=== PATIENT | female | born 1990 | race Caucasian/White ===

== ENCOUNTER 2017-03-21 16:25 | Emergency (ER) | payer OTHER ==
[~2017-03-21] VITALS: Ht 170.2 cm; Wt 73.2 kg
[2017-03-21 16:28] VITALS: BP 110/69; PULSE 82; TEMP 36.7; O2SAT 100; Ht 170.2 cm; Wt 73.2 kg
[2017-03-21] MEDS ORDERED: AMOX500C3 PO (16:46)
--- NOTE | 2017-03-21 20:47 | EMERGENCY ROOM VISIT NOTE ---
History First contact with patient: 16:31 Chief Complaint: EAR PAIN Stated Complaint: EAR ACHE History of Present Illness The patient is a 26 year old female who presents to the Emergency Room with complaints of a left-sided earache. The patient reports that she has a history of impacted wisdom teeth. She believes that her pain is being caused by this. However, she is also concerned that she may have a dental infection. The patient denies any fevers or chills. She reports that the pain radiates into her left anabaptism. She denies any headache, runny nose, sinus congestion or sore throat. The patient recently moved to the area, and does not have a family doctor. She rates her discomfort a 4 out of 10. Review of Systems 10 system review was performed and was negative except for pertinent positives and negatives as indicated in history of present illness Past Medical/Surgical History Medical Problems: (1) Heart disease Surgical Problems: (1) History of delivery Family History FH: heart disease Social History Smoking Status: Former Smoker Alcohol Use: none Marital Status: Housing Status: lives with family Occupation Status: employed Current/Historical Medications Scheduled Amoxicillin (Amoxil), 1 CAP PO TID Allergies Coded Allergies: No Known Allergies (Unverified , 03/21/17) Physical Exam Vital Signs Date Time Temp Pulse Resp B/P Pulse Ox O2 Delivery O2 Flow Rate FiO2 03/21/17 16:28 36.7 82 20 110/69 100 Room Air Pain Rating (0-10): 0 Physical Exam CONSTITUTIONAL: Healthy and well nourished. Alert and oriented X 3 with positive affect. Patient does not appear in any acute distress. HEENT: Normocephalic, atraumatic. Pupils equal, round and reactive. No facial edema or erythema noted. No tenderness to palpation of the left parotid gland. Nares are clear. Examination of the left ear does not show any erythema , air-fluid levels or effusions. OROPHARYNX: No obvious dental pain with percussion or palpation. No gingival erythema, fluctuance or pointing. NECK: Full active range of motion without discomfort. RESPIRATORY: Clear to auscultation bilaterally with no wheezing, crackles, rhonchi or stridor. CARDIOVASCULAR: Regular rate and rhythm with no murmurs, rubs or gallops. MUSCULOSKELETAL: Full range of motion of all joints without discomfort. INTEGUMENTARY: No rash or other significant dermatologic conditions noted. NEUROLOGIC: Facial sensations are intact. Medical Decision & Procedures ED Course Patient history and physical exam were performed. Nurse's notes were reviewed. The patient's vital signs were reviewed and were normal. The patient is requesting an antibiotic in case she is developing a dental infection. She was provided a prescription for amoxicillin 500 mg 3 times a day 10 days. She was encouraged to find a dentist for further reevaluation and management. She was also instructed to find a local family doctor for further management if her dentist does not feel that her symptoms are secondary to a dental infection. She was instructed to return to the emergency department for any noticeable facial swelling, difficulty swallowing, fever or other concerning symptoms. The patient was happy with plan of care, voiced understanding of all discharge instructions, and rated her pain a 4 out of 10 at the time of discharge. She refused any analgesics in the emergency department, or prescription analgesics. Medical Decision Impression Primary Impression: Pain, dental Departure Information Dispostion Home / Self-Care Condition GOOD Prescriptions Amoxicillin (AMOXIL) 500 Mg Cap 1 CAP PO TID for 10 Days, #30 CAP Prov: Benjie Onofre PA 03/21/17 Forms HOME CARE DOCUMENTATION FORM, IMPORTANT VISIT INFORMATION Patient Instructions My [facility] Additional Instructions Complete all amoxicillin antibiotics as prescribed. Ibuprofen 800 mg and/or Tylenol 1000 mg every 8 hours. You may also alternate these medications for more effective pain relief: Ibuprofen --4 HRS--> Tylenol --4 HRS--> ibuprofen --4 HRS--> Tylenol .... Follow-up with a dentist for further reevaluation and management. The emergency department does not provide dental services, referrals or chronic dental pain management.
== END 2017-03-21 17:09 | disposition home or self-care (01) ==
LOC: C.EDB 16:27 → C.EDD 17:09
DX: K08.89 Other specified disorders of teeth and supporting structures (principal); Z87.891 Personal history of nicotine dependence